=== PATIENT | male | born 1980 | race American Indian/Alaskan Native ===

== ENCOUNTER 2019-01-04 17:02 | Emergency (ER) | payer OTHER ==
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
--- NOTE | 2019-01-04 18:25 | XRay Report ---
PROCEDURE: XR SPINE LUMBOSACRAL 2-3V HISTORY: low back pain FINDINGS: AP and lateral views of the lumbar spine were acquired as well as coned-down lateral view of L5-S1. These images demonstrate no fracture of the lumbar spine. There is anterior endplate remodeling at T1 1-12 and T12-L1 at L3-L4. The intervertebral disc space heights appear preserved. IMPRESSION: No fracture is seen in the lumbar spine This document is electronically signed by Ye Prabhakar MD., January 04 2019 06:23:04 PM ET
[2019-01-04 19:12] VITALS: BP 155/106
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
== END 2019-01-04 19:31 | disposition home or self-care (01) ==
LOC: ED 17:02
DX: S39.012A Strain of muscle, fascia and tendon of lower back, initial encounter (principal); V49.49XA Driver injured in collision with other motor vehicles in traffic accident, initial encounter; Y93.89 Activity, other specified; Y92.89 Other specified places as the place of occurrence of the external cause; Y99.8 Other external cause status
CPT/HCPCS: 72100